=== PATIENT | male | born 1995 | race Caucasian/White ===

== ENCOUNTER 2022-10-22 07:36 | Emergency (ER) | payer MEDICAID, SELFPAY ==
[2022-10-22] VITALS (94 sets, daily range): BP systolic 93–120; BP diastolic 49–77; PULSE 43–106; RESP 0–22; TEMP 36.6; O2SAT 84–100; BMI 19.2
--- NOTE | 2022-10-22 07:40 | ECG_ITS ---
[facility] Test Date: 2022-10-22 Pat Name: Michael Temple Department: Room: Gender: Male [employer] Worker: : 1995 Requested By: Wesley Gipson Order Number: [id number] Miles MD: Julian Everett M.D. Measurements Intervals [place] Rate: 49 P: 34 CO: 176 QRS: 78 QRSD: 107 T: 57 QT: 408 QTc: 371 Interpretive Statements SINUS BRADYCARDIA INCOMPLETE RIGHT BUNDLE BRANCH BLOCK [90+ ms QRS DURATION, TERMINAL R IN V1/V2, 40+ ms S IN I/aVL/V4/V5/V6] TYPE 3 BRUGADA PATTERN (NON-DIAGNOSTIC) [COVED/SADDLEBACK ST ELEVATION > 0.1mV IN 2 OF V1-3] No previous ECG available for comparison Electronically Signed On 10-22-2022 17:36:43 SCHOOL CLERK by Julian Everett M.D. [id number]
--- NOTE | 2022-10-22 07:54 | ED_ITS ---
HPI - Seizure General: Chief Complaint: Seizure Stated Complaint: Seizure Time Seen by Provider: 10/22/22 07:40 Source: patient Mode of arrival: EMS History of Present Illness: HPI Narrative: 27-year-old male brought in by EMS after having a seizure this morning. He has had a history of grand mal seizures there is no report on the length of time. Patient is postictal and initially seen the patient. He has known history of seizures and he is supposed to be taking Keppra but has not been taking it for nearly a year. Patient admits to having is some recreational marijuana. He does have a laceration of the left side of his tongue and some dried blood on his face. MD complaint: seizure Onset (ago): minute(s) Description of Episode: tonic-clonic movement Witnessed: Yes - by Bystander Seizure History: Yes Place: Home Possible Precipitating Event: drug use and medication (Not taking Keppra) Associated symptoms: Deny chest pain, chills, confusion, cough, diaphoresis, fe brenda(s), anorexia, malaise, rash, short of breath, syncope or weakness Treatments prior to arrival: none Review of Systems Const: Denies: fever(s), chills, malaise or diaphoresis ENMT: Denies: throat pain, ear or mastoid pain, nasal discharge or nasal congestion Card: Denies: chest pain or syncope Resp: Denies: dyspnea, productive cough or non-productive cough GI: Denies: abdominal pain, nausea, vomiting, hematemesis, coffee ground emesis, diarrhea, constipation, bloating, hematochezia or melena : Denies: flank pain, dysuria, urinary frequency or urinary urgency Skin/Breast: Denies: rash or pruritus Neuro: Denies: confusion [facility] PFSH: Medical History (Updated 10/22/22 @ 16:49 by Wesley Grace DO) Seizures Physical Exam Const: GENERAL APPEARANCE: cooperative and comfortable ORIENTATION/CONSCIOUSNESS: Yes awake HENMT: COMMON NORMALS: normocephalic, atraumatic, hearing grossly normal bilaterally, external ears normal, EAC's normal, TM's normal bilaterally, Normal nasal mucous membranes and turbinates present and moist oral mucous membranes HEAD & SCALP: normocephalic and atraumatic NOSE: Normal nasal mucous membranes and turbinates present EXTERNAL EAR: Yes external ears normal EXTERNAL AUDITORY CANAL: EAC's normal TYMPANIC MEMBRANE: TM's normal bilaterally OTHER: Melena blood in the mouth with a small laceration on the left side of the tongue Eye: COMMON NORMALS: Equal, round and reactive pupils present, EOMs intact bilaterally, conjunctivae normal and no scleral icterus CONJUNCTIVA: Yes conjunctivae normal PUPIL: Yes Equal, round and reactive pupils present Neck/C-Spine: COMMON NORMALS: full ROM, no lymphadenopathy, supple and no JVD Lymph: LYMPHATIC: no lymphadenopathy noted and no lymphedema noted Resp: COMMON NORMALS: normal respiratory effort, No retractions, No use of accessory muscles and clear to auscultation bilaterally AUSCULTATION: clear to auscultation bilaterally Cardio: COMMON NORMALS: no JVD, regular rate, regular rhythm and No murmurs present (Cardio) RATE: regular rate RHYTHM: regular rhythm GI: COMMON NORMALS: Soft to palpation and No hepatosplenomegaly present AUSCULTATION: Yes normoactive bowel sounds PALPATION: Yes Soft to palpation, No Tenderness to palpation present (GI), No Guarding due to palpation present (GI) and Yes No hepatosplenomegaly present Extremity: COMMON NORMALS: normal to inspection, capillary refill normal, no clubbing, cyanosis or edema, no calf tenderness and no pedal edema Skin: COMMON NORMALS: no rashes or lesions noted GENERAL SKIN EXAM: no rashes or lesions noted Course Vital Signs: Vital signs: Vital Signs Temperature 97.8 F 10/22/22 07:37 Pulse Rate 58 L 10/22/22 15:55 Respiratory Rate 19 H 10/22/22 15:15 Blood Pressure 116/55 10/22/22 15:25 Pulse Oximetry 99 10/22/22 16:10 Oxygen Delivery Me thod 10/22/22 13:20 Oxygen Flow Rate 2 10/22/22 08:55 MDM - Seizure MDM Narrative Medical decision making narrative: Shortly after initial evaluation patient is second seizure he was moved to a trauma room and given Ativan. With some difficulty with the IV access was lost while he was seizing IV was reestablished. He looked as if he might be having a second seizure and he was given 2 of Versed. He is also given 1 g of Keppra. Patient monitored for a long period of time in the emergency room. I talked to Dr. Mosley. She felt he did not necessarily need to be admitted but because of his recurrent seizures should be observed in the emergency room. He had a prolonged recovery from the second seizure due to the Ativan and Versed that he was given eventually he did come around he is able to ambulate without difficult y he has been loaded with Keppra we will restart him on 500 twice daily explained the importance of taking medication regularly also explained that medical marijuana can lower his seizure threshold may incur more seizures. Left outpatient set him up for an outpatient EEG and follow-up with neurology Lab Data Attestation: I reviewed the patient's lab results. 10/22/22 07:10 10/22/22 07:10 Labs: Radiology Impressions Head CT 10/22/22 08:02 IMPRESSION: 1. No evidence of intracranial hemorrhage or mass effect. 2. No acute intracranial findings. Laboratory Results WBC 11.5 10^3/uL (4.0-10.0) H 10/22/22 07:10 RBC 5.09 10^6/uL (4.1-5.3) 10/22/22 07:10 Hgb 14.7 g/dL (11.7-16.6) 10/22/22 07:10 Hct 46.3 % (42.0-52.0) 10/22/22 07:10 MCV 91.0 fl (80-94) 10/22/22 07:10 MCH 28.9 pg (28.0-34.0) 10/22/22 07:10 MCHC 31.7 g/dL (30.0-36.0) 10/22/22 07:10 RDW 12.3 % (12.1-15.1) 10/22/22 07:10 Plt Count 290 10^3/cmm (130-400) 10/22/22 07:10 MPV 10.5 fL (7.4-10.4) H 10/22/22 07:10 Neut % (Auto) 57.0 % 10/22/22 07:10 Lymph % (Auto) 33.7 % 10/22/22 07:10 [place]pine % (Auto) 6.4 % 10/22/22 07:10 Eos % (Auto) 2.3 % 10/22/22 07:10 Baso % (Auto) 0.3 % 10/22/22 07:10 Neut # (Auto) 6.55 10^3/uL (1.8-7.7) 10/22/22 07:10 Lymph # (Auto) 3.9 10^3/uL (0.8-4.8) 10/22/22 07:10 Alpine # (Auto) 0.7 10^3/uL (0.2-0.9) 10/22/22 07:10 Eos # (Auto) 0.3 10^3/uL (0.0-0.8) 10/22/22 07:10 Baso # (Auto) 0.0 10^3/uL (0.0-0.1) 10/22/22 07:10 Nucleated RBC % (auto) 0 % 10/22/22 07:10 Nucleated RBCs # 0.0 /100WBC 10/22/22 07:10 Sodium 138 mmol/L (136-145) 10/22/22 07:10 Potassium 3.9 mmol/L (3.5-5.1) 10/22/22 07:10 Chloride 100 mmol/L (98-107) 10/22/22 07:10 Carbon Dioxide 20 mmol/L (22-29) L 10/22/22 07:10 Anion Gap 21.9 (5-19) H 10/22/22 07:10 BUN 19 mg/dL (6-20) 10/22/22 07:10 Creatinine 0.8 mg/dL (0.7-1.2) 10/22/22 07:10 GFR Calculation 116.9 mL/min (90-130) 10/22/22 07:10 Glucose 109 mg/dL (65-115) 10/22/22 07:10 Calculated Osmolality 289 mOsm/kg (285-295) 10/22/22 07:10 Calcium 9.5 mg/dL (8.5-10.5) 10/22/22 07:10 Total Bilirubin 0.5 mg/dL (0.15-1.2) 10/22/22 07:10 AST 20 U/L (0-40) 10/22/22 07:10 ALT 15 U/L (0-41) 10/22/22 07:10 Alkaline Phosphatase 73 U/L (40-130) 10/22/22 07:10 Total Protein 7.5 g/dL (6.6-8.7) 10/22/22 07:10 Albumin 4.9 g/dL (3.5-5.2) 10/22/22 07:10 Globulin 2.6 g/dL (1.3-4.6) 10/22/22 07:10 Urine Color Yellow (Yellow) 10/22/22 12:15 Urine Appearance Clear (CLEAR) 10/22/22 12:15 Urine pH 6 (5-7) 10/22/22 12:15 Ur Specific [place] 1.020 (1.005-1.030) 10/22/22 12:15 Urine Protein 1+ (Negative) H 10/22/22 12:15 Urine Glucose (UA) Norm (Normal) 10/22/22 12:15 Urine Ketones 1+ (Negative) H 10/22/22 12:15 Urine Blood Neg (Negative) 10/22/22 12:15 Urine Nitrate Negative (Negative) 10/22/22 12:15 Urine Bilirubin Neg (Negative) 10/22/22 12:15 Urine Urobilinogen Neg mg/dL (Negative) 10/22/22 12:15 Ur Leukocyte Esterase Negative (Negative) 10/22/22 12:15 Urine RBC 0-4 /hpf (0-2) H 10/22/22 12:15 Urine WBC None /hpf (0-5) 10/22/22 12:15 Ur Squamous Epith Cells 0-4 /hpf (0-5) H 10/22/22 12:15 Amorphous Sediment 1+ /hpf 10/22/22 12:15 Urine Bacteria None /hpf (NONE) 10/22/22 12:15 Urine Mucus 2+ /hpf 10/22/22 12:15 Urine Opiates Screen Negative ng/mL (Negative) 10/22/22 12:15 Ur Barbiturates Screen Negative ng/mL (Negative) 10/22/22 12:15 Levetiracetam <2.0 mcg/mL (6.0-46.0) L 10/22/22 07:10 Ur Phencyclidine Scrn Negative ng/mL (Negative) 10/22/22 12:15 Ur Amphetamines Screen Negative ng/mL (Negative) 10/22/22 12:15 U Benzodiazepines Scrn Positive ng/mL (Negative) H 10/22/22 12:15 Urine Cocaine Screen Negative ng/mL (Negative) 10/22/22 12:15 U Marijuana (THC) Screen Positive ng/mL (Negative) H 10/22/22 12:15 Ethyl Alcohol < 10 mg/dL (0-10) 10/22/22 07:10 Discharge Plan Discharge Patient Disposition: Home Clinical Impression: Seizures Prescriptions: New Keppra 500 mg tablet 500 mg PO BID Qty: 60 3RF Discharge Orders: Discharge ED (Routine); Ordered 10/22/22 Ordered By: Wesley Grace Discharge Diet: Usual diet Discharge Activity: Limit activity as instructed Patient Instructions: Opioid Safety, Pain Management Activity Restrictions/Additional Instructions: You were seen today for seizures. You responded well to the medications given. Is recommended that you restart Keppra 500 mg twice daily Case management make arrangements for an outpatient EEG and follow-up with Dr. Mosley. You should not drive until released by Dr. Mosley once your seizures have been determined to be stable on the Keppra. Coding Level of Care Code ED Sorority Mother for Miya Julio
[2022-10-22 07:58] LABS: Basophils % 0.3 %; Eosinophils # 0.3 10^3/uL (0.0-0.8); Eosinophils % 2.3 %; Hematocrit 46.3 % (42.0-52.0); Hemoglobin 14.7 g/dL (11.7-16.6); Lymphocytes # 3.9 10^3/uL (0.8-4.8); Lymphocytes % 33.7 %; Mean Corpuscular HGB Conc 31.7 g/dL (30.0-36.0); Mean Corpuscular Hemoglobin 28.9 pg (28.0-34.0); Mean Platelet Volume 10.5 fL (7.4-10.4); Monocytes # 0.7 10^3/uL (0.2-0.9); Monocytes % 6.4 %; Neutrophils # 6.55 10^3/uL (1.8-7.7); Nucleated Red Blood Cells % 0 %; Platelet Count 290 10^3/cmm (130-400); Red Blood Count 5.09 10^6/uL (4.1-5.3); Red Cell Distribution Width 12.3 % (12.1-15.1); White Blood Count 11.5 10^3/uL (4.0-10.0)
--- NOTE | 2022-10-22 08:02 | CT_ITS ---
WS: [id number] CT HEAD TECHNIQUE: Noncontrast CT of the head obtained from the skullbase to the vertex. CLINICAL INFORMATION: seizure COMPARISON: None. DLP: 1033.[address] scans at [facility] use at least one of these dose optimization techniques: automated e xposure control; mA and/or kV adjustment per patient size (includes targeted exams where dose is matc hed to clinical indication); or iterative reconstruction. FINDINGS: No evidence of intracranial hemorrhage or mass effect. Ventricular system and basal cisterns are rubi nt. No extra-axial fluid collections. No evidence of mass or mass effect. Normal marinelli-white different iation. Minimal slightly low-lying cerebellar tonsils. Normal 4th ventricle. Paranasal sinuses and mastoid air cells are well aerated. .Normal visualized soft tissues. CT/CT head wo con* [id number] IMPRESSION: 1. No evidence of intracranial hemorrhage or mass effect. 2. No acute intracranial findings.
[2022-10-22 08:20] LABS: Alanine Aminotransferase 15 U/L (0-41); Albumin Level 4.9 g/dL (3.5-5.2); Alkaline Phosphatase 73 U/L (40-130); Anion Gap 21.9 (5-19); Aspartate Amino Transferase 20 U/L (0-40); Blood Urea Nitrogen 19 mg/dL (6-20); Calcium 9.5 mg/dL (8.5-10.5); Carbon Dioxide 20 mmol/L (22-29); Chloride 100 mmol/L (98-107); Globulin 2.6 g/dL (1.3-4.6); Glomerular Filtration Rate 116.9 mL/min (90-130); Glucose 109 mg/dL (65-115); Osmolality Calculated 289 mOsm/kg (285-295); Potassium 3.9 mmol/L (3.5-5.1); Sodium 138 mmol/L (136-145); Total Bilirubin 0.5 mg/dL (0.15-1.2); Total Protein 7.5 g/dL (6.6-8.7)
[2022-10-22] MEDS: LORazepam 2 mg/mL INJ 1 mL (08:20)
[2022-10-22] MEDS: midazolam 1 mg/mL INJ 2 mL 2 MG (08:20)
[2022-10-22 10:11] LABS: Alcohol Level < 10 mg/dL (0-10)
[2022-10-22 12:39] LABS: Amphetamines Screen Urine Negative (Negative); Barbiturates Screen Urine Negative (Negative); Benzodiazepines Screen Urine Positive (Negative); Cocaine Screen Urine Negative (Negative); Opiate Screen Urine Negative (Negative); PCP Screen Urine Negative (Negative); THC Screen Urine Positive (Negative)
[2022-10-22 12:40] LABS: Add Urine Culture? No; Add Urine Microscopic? YES; Amorphous Sediment Urine 1+ /hpf; Bilirubin Urine Neg (Negative); Blood Urine Neg (Negative); Glucose Urine UA Norm (Normal); Ketones Urine 1+ (Negative); Leukocyte Esterase Urine Negative (Negative); Mucus Urine 2+ /hpf; Nitrate Urine Negative (Negative); Protein Urine 1+ (Negative); RBC Urine 0-4 /hpf (0-2); Squamous Epithelial Cell Urine 0-4 /hpf (0-5); Urine Appearance Clear (CLEAR); Urine Color Yellow (Yellow); Urobilinogen Urine Neg (Negative); pH Urine 6 (5-7)
--- NOTE | 2022-10-22 19:13 | PC.NURSE ---
AT ABOUT 0740 PT FAMILY CALLED OUT FOR HELP IN ROOM 9. ER NURSES AND DR NUNEZ CAME TO BEDSIDE. PT WAS VIOLENTLY CONVULSING AND APPEARED TO BE HAVING A SEIZURE. FAMILY TAKEN TO WAITING ROOM. PT WAS TAKEN TO ROOM 10 IN [facility] AND MEDS ORDERED. PT WAS SUCTIONED AND STABILIZED. PT HAD POST SEIZURE CONFUSION AND EVENTUALLY BECAME A&O X4. PT ON FLOWER CUTTER AND BEING MONITORED.
[2022-10-23 10:34] LABS: Levetiracetam Immunoassy <2.0 mcg/mL (6.0-46.0)
--- NOTE | 2022-10-24 10:11 | DCPLANNER ---
Addendum entered by Laura Odell 11/13/22 11:15: Patient had a EEG and a follow up appointment scheduled with neurology - patient did attend appointment Original Note: [employer] wireless manager had message to schedule an outpatient appointment for patient with neurology. [employer] wireless manager sent patients information to the front office staff at neurology. Patients information will be printed and reviewed. Clinic will call patient with appointment information. [employer] exchange wireless manager also had message to schedule an outpatient sleep deprived EEG. military exchange wireless manager faxed signed order to neurology, who will call patient with appointment information.
== END 2022-10-22 17:40 | disposition home or self-care (01) ==
PROVIDERS: Emergency Provider Family Medicine
DX: R56.9 Unspecified convulsions (principal)
CPT/HCPCS: 70450; 80053; 80177; 80306; 80307; 81001; 85025; 93005; 94799; 96374; 99285; 99291; J1953; J2060; J2250

== ENCOUNTER → 2023-03-27 09:29 | Outpatient (BNVA) | payer MEDICAID, SELFPAY | PROVIDERS: PCP Family Medicine; Visit Provider Specialist | DX: G40.909 Epilepsy, unspecified, not intractable, without status epilepticus (principal) | CPT/HCPCS: 99215 ==

== ENCOUNTER 2023-04-15 09:43 | Outpatient (CLI) | payer MEDICAID, SELFPAY ==
--- NOTE | 2023-04-15 10:15 | MR_ITS ---
WS: [id number] MRI HEAD WITHOUT CONTRAST TECHNIQUE: Sagittal T1, T2 axial, T2 axial FLAIR, axial and coronal T1 images, axial susceptibility w eighted imaging, axial diffusion weighted images, and coronal T2 images were obtained. CLINICAL INFORMATION: G40.109 - Localization-related (focal) (partial) symptoma... COMPARISON: CT head 10/22/2022 FINDINGS: No evidence of restricted diffusion to suggest acute ischemia. Ventricular system and basal cisterns are patent. No suspicious intracranial signal normalities. Normal marinelli-white differentiation. Normal posterior fossa. Normal vascular flow voids at the skull base. No extra-axial fluid collections. No m ass or mass effect. Paranasal sinuses and mastoid air cells are well aerated. Normal posterior nasoph arynx and parapharyngeal fat. No hemosiderin on the susceptibility weighted images. Normal optic chiasm and pituitary infundibulum. Temporal lobes and hippocampal formations are normal in appearance. Normal mesial temporal lobes. No temporal lobe signal normalities. Normal optic chiasm and pituitary infundibulum. IMPRESSION 1. No suspicious intracranial signal normalities. 2. Temporal lobes and hippocampal formations are normal in appearance. Normal mesial temporal lobes. 3. No other suspicious findings.
== END 2023-04-15 09:44 | disposition home or self-care (01) ==
LOC: RAD 09:46
PROVIDERS: PCP Family Medicine; Visit Provider Specialist
DX: G40.109 Localization-related (focal) (partial) symptomatic epilepsy and epileptic syndromes with simple partial seizures, not intractable, without status epilepticus (principal); R56.9 Unspecified convulsions
CPT/HCPCS: 70551